=== PATIENT | female | born 1970 | race Caucasian/White ===

== ENCOUNTER 2023-05-27 11:05 | Emergency (ER) | payer OTHER ==
[~2023-05-27] VITALS: Ht 170.2 cm; Wt 68.0 kg
[2023-05-27 11:40] LABS: HEMATOCRIT 38.3 % (36-48); MEAN CORPUSCULAR HEMOGLOBIN 33.9 pg (27.0-33.0); RED BLOOD CELL COUNT(AUTO) 3.95 MIL/uL (4.00-5.50); RED CELL DISTRIBUTION WIDTH 15.2 % (11.0-15.5); WHITE BLOOD COUNT (AUTO) 5.3 K/uL (4.8-10.8)
[2023-05-27 11:55] LABS: ALBUMIN 4.2 g/dL (3.5-5.0); CREATININE 0.8 mg/dL (0.5-1.5); TOTAL PROTEIN, SERUM 8.3 g/dL (6.0-8.3)
[2023-05-27 11:56] LABS: POTASSIUM 2.8 mmol/L (3.5-5.1)
[2023-05-27 11:58] LABS: BILIRUBIN,URINE 0.5 mg/dL (NEGATIVE); COLOR,URINE YELLOW (YELLOW); GLUCOSE, URINE (UA) 30 mg/dL (NEGATIVE); KETONES,URINE 150 mg/dL (NEGATIVE); LEUKOCYTE ESTERASE ,URINE NEGATIVE Leu/uL (NEGATIVE); NITRATE,URINE NEGATIVE (NEGATIVE); OCCULT BLOOD,URINE SMALL (NEGATIVE); PH,URINE 6.5 (5.0-8.0); PROTEIN,URINE 100 mg/dL (NEGATIVE)
[2023-05-27 11:59] LABS: ADD UA MICROSCOPIC YES; APPEARANCE,URINE HAZY (CLEAR)
[2023-05-27] MEDS ORDERED: POTASSIUM CHLORIDE 10MEQ/100ML 10 MEQ/100 ML ML IV ONE ×2 (12:00→14:00)
[2023-05-27] MEDS ORDERED: LACTATED RINGERS 1000ML 1,000 ML IV ONE (12:00)
[2023-05-27] MEDS ORDERED: ONDANSETRON 4MG INJ IVP ONE (12:00)
[2023-05-27] MEDS ORDERED: KETOROLAC 15MG/ML VIAL (15MG/ML) IV ONE (12:00)
[2023-05-27] MEDS ORDERED: FAMOTIDINE 20MG VIAL IV ONE (12:00)
[2023-05-27 12:01] LABS: BACTERIA,URINE FEW /HPF (None Seen); MUCUS,URINE FEW LPF (None Seen); SQUAMOUS EPITHELIAL CELL,UR FEW /HPF (0-2); WBC,URINE 0-1 /HPF (0-1)
[2023-05-27 16:35] VITALS: BP 118/75; PULSE 82; RESP 16; O2SAT 100
[2023-05-27] MEDS ORDERED: ONDA4TAB10 PO (16:59)
[2023-05-27] MEDS ORDERED: POTA-364 PO (16:59)
[2023-05-28] MEDS ORDERED: CETI-193 PO (02:05)
[2023-05-28] MEDS ORDERED: FLUO40CA7 PO (02:05)
== END 2023-05-27 17:14 | disposition home or self-care (01) ==
LOC: EDH 11:05
DX: E87.6 Hypokalemia (principal); R19.7 Diarrhea, unspecified; R11.2 Nausea with vomiting, unspecified; F32.A Depression, unspecified; J45.909 Unspecified asthma, uncomplicated; Z79.899 Other long term (current) drug therapy; Z98.890 Other specified postprocedural states
CPT/HCPCS: 99285; 96365; 96375; 96366; 96361; 80053; 85027; 81001; 36415; 96376; 93005; 84132; J7120; J3490; J2405; J1885; J3480 ×2; 96374

== ENCOUNTER 2023-05-27 19:39 | Inpatient (IN) | payer MEDICAID, OTHER ==
[~2023-05-27] VITALS: Ht 170.2 cm; Wt 70.9 kg
[~2023-05-27 19:39] MED LIST: ONDA4TAB10 PO; POTA-364 PO
[2023-05-27 20:02] LABS: BASOPHILS # (AUTO) 0.03 K/uL (0.00-0.20); BASOPHILS % (AUTO) 0.5 % (0.0-5.0); EOSINOPHILS # (AUTO) 0.01 K/uL (0.00-0.70); EOSINOPHILS % (AUTO) 0.2 % (0.0-8.0); HEMATOCRIT 31.6 % (36-48); IMMATURE GRANULOCYTE ABSOLUTE 0.03 K/uL (0-1); LYMPHOCYTES # (AUTO) 0.4 K/uL (1.0-4.8); LYMPHOCYTES % (AUTO) 7.9 % (21.0-51.0); MEAN CORPUSCULAR HEMOGLOBIN 34.1 pg (27.0-33.0); MEAN CORPUSCULAR HGB CONC 34.8 g/dL (32.0-36.0); MEAN CORPUSCULAR VOLUME 97.8 fL (79-99); MONOCYTES # (AUTO) 0.3 K/uL (0.1-1.0); MONOCYTES % (AUTO) 5.8 % (3.0-13.0); NEUTROPHILS # (AUTO) 4.7 K/uL (1.8-7.7); NEUTROPHILS % (AUTO) 85.1 % (40.0-77.0); PLATELET COUNT (AUTO) 105 K/uL (130-400); RED BLOOD CELL COUNT(AUTO) 3.23 MIL/uL (4.00-5.50); RED CELL DISTRIBUTION WIDTH 15.5 % (11.0-15.5); WHITE BLOOD COUNT (AUTO) 5.6 K/uL (4.8-10.8)
[2023-05-27 20:14] LABS: ALBUMIN 3.4 g/dL (3.5-5.0); BILIRUBIN,TOTAL 1.8 mg/dL (0.2-1.0); CREATININE 0.8 mg/dL (0.5-1.5); MAGNESIUM 0.8 mg/dL (1.80-2.40); TOTAL PROTEIN, SERUM 6.7 g/dL (6.0-8.3)
[2023-05-27 20:17] LABS: POTASSIUM 2.8 mmol/L (3.5-5.1)
[2023-05-27] MEDS ORDERED: 0.9%NACL 1000ML 1,000 ML IV ONE (20:30)
[2023-05-27] MEDS ORDERED: POTASSIUM BICARB/CIT AC 25 MEQ TABLET.EFF PO ONE (20:30)
[2023-05-27 20:53] LABS: ADD UA MICROSCOPIC YES; APPEARANCE,URINE CLOUDY (CLEAR); BILIRUBIN,URINE 1 mg/dL (NEGATIVE); COLOR,URINE ORANGE (YELLOW); GLUCOSE, URINE (UA) 50 mg/dL (NEGATIVE); KETONES,URINE 40 mg/dL (NEGATIVE); LEUKOCYTE ESTERASE ,URINE 25 Leu/uL (NEGATIVE); NITRATE,URINE NEGATIVE (NEGATIVE); PH,URINE 6.5 (5.0-8.0); PROTEIN,URINE 100 mg/dL (NEGATIVE)
[2023-05-27 21:03] LABS: BACTERIA,URINE FEW /HPF (None Seen); MUCUS,URINE FEW LPF (None Seen); SQUAMOUS EPITHELIAL CELL,UR MANY /HPF (0-2)
[2023-05-27] MEDS ORDERED: CEFTRIAXONE 2GM VIAL IVPB ONE (21:30)
[2023-05-27] MEDS: MAGNESIUM 2GM PREMIX 50ML 50 ML IV PRN (22:00)
[2023-05-27] MEDS ORDERED: POTASSIUM CHLORIDE 20MEQ/100ML 100 ML IV PRN (23:30)
[2023-05-27] MEDS ORDERED: ONDANSETRON 4MG INJ IV PRN (23:30)
[2023-05-27] MEDS ORDERED: ACETAMINOPHEN 325 MG TAB PO PRN ×2 (23:30)
[2023-05-28] MEDS: LACTATED RINGERS 1000ML 1,000 ML IV SCH (00:15)
[2023-05-28] MEDS: CEFTRIAXONE 1G VIAL IV SCH (00:15)
[2023-05-28] MEDS: POTASSIUM CHLORIDE 10% ELIXIR 20 MEQ/15 ML UDCUP PO PRN ×4 (00:18→15:01)
[2023-05-28] MEDS ORDERED: CETI-193 PO (02:05)
[2023-05-28] MEDS ORDERED: FLUO40CA7 PO (02:05)
[2023-05-28] MEDS: MAGNESIUM 2GM PREMIX 50ML 50 ML IV PRN (02:16)
[2023-05-28] MEDS: PHENAZOPYRIDINE HCL 200 MG TABLET PO PRN ×2 (03:11→15:01)
[2023-05-28 04:00] VITALS: BP 109/61; PULSE 79; RESP 18
[2023-05-28] MEDS ORDERED: LORAZEPAM 2 MG/ML 1 ML VIAL ONE (05:24)
[2023-05-28] MEDS ORDERED: LORAZEPAM 2 MG/ML 1 ML VIAL IVP ONE (05:30)
[2023-05-28 05:59] LABS: AMPHET/METH SCREEN,URINE NEGATIVE (NEGATIVE); BARBITURATE SCREEN, URINE NEGATIVE (NEGATIVE); BENZODIAZEPINES SCREEN,URINE NEGATIVE (NEGATIVE); CANNABINOID SCREEN,URINE POSITIVE (NEGATIVE); COCAINE SCREEN,URINE NEGATIVE (NEGATIVE); OPIATE SCREEN,URINE NEGATIVE (NEGATIVE); PHENCYCLIDINE SCREEN,URINE NEGATIVE (NEGATIVE)
[2023-05-28 07:04] LABS: HEMATOCRIT 28.9 % (36-48); MEAN CORPUSCULAR HEMOGLOBIN 34.6 pg (27.0-33.0); MEAN CORPUSCULAR HGB CONC 34.9 g/dL (32.0-36.0); RED BLOOD CELL COUNT(AUTO) 2.92 MIL/uL (4.00-5.50); RED CELL DISTRIBUTION WIDTH 15.7 % (11.0-15.5)
[2023-05-28 07:32] LABS: % IRON SATURATION 29.3 % (22-44)
[2023-05-28 07:47] LABS: BILIRUBIN,TOTAL 0.8 mg/dL (0.2-1.0); CREATININE 0.8 mg/dL (0.5-1.5); MAGNESIUM 1.9 mg/dL (1.80-2.40); TOTAL PROTEIN, SERUM 6.1 g/dL (6.0-8.3)
[2023-05-28 08:00] VITALS: BP 107/68; PULSE 86; RESP 17
[2023-05-28] MEDS: KCL 20 MEQ ERTAB PO PRN ×2 (08:11→10:30)
[2023-05-28 08:16] LABS: HEMOGLOBIN A1C 5.8 % (4.0-6.0)
[2023-05-28] MEDS ORDERED: LEVETIRACETAM 500 MG/5 ML SD VIAL IV SCH (09:00)
[2023-05-28] MEDS ORDERED: LEVETIRACETAM 500 MG in 0.9%NACL 100ML 100 ML IV SCH (09:30)
[2023-05-28] MEDS: FAMOTIDINE 20MG TAB PO SCH ×2 (10:29→20:21)
[2023-05-28 12:00] VITALS: BP 116/73; PULSE 82; RESP 18
[2023-05-28] MEDS ORDERED: PROMETHAZINE HCL 25 MG TABLET PO PRN (14:30)
[2023-05-28] MEDS ORDERED: PHARMACY COMMUNICATION MISC PRN (14:30)
[2023-05-28] MEDS ORDERED: LORAZEPAM 2 MG/ML 1 ML VIAL IVP PRN (14:30)
[2023-05-28] MEDS ORDERED: ONDANSETRON 4MG INJ IV PRN (14:30)
[2023-05-28] MEDS: THIAMINE HCL 100 MG, FOLIC ACID 1 MG, M.V.I. IV [ADULT] 10 ML in 0.9%NACL 1000ML 1,000 ML IV SCH (15:45)
[2023-05-28 16:00] VITALS: BP 109/54; PULSE 99; RESP 18
[2023-05-28] MEDS: CHLORDIAZEPOXIDE HCL 25 MG CAP PO PRN ×2 (17:45→22:02)
[2023-05-28 20:00] VITALS: BP 101/41; PULSE 94; RESP 20
[2023-05-28 20:22] VITALS: O2SAT 96
[2023-05-29] VITALS (8 sets, daily range): BP systolic 103–121; BP diastolic 67–74; PULSE 74–97; RESP 18; O2SAT 97–99
[2023-05-29] MEDS: CEFTRIAXONE 1G VIAL IV SCH ×2 (00:13→22:51)
[2023-05-29] MEDS: CHLORDIAZEPOXIDE HCL 25 MG CAP PO PRN (00:53)
[2023-05-29] MEDS: LACTATED RINGERS 1000ML 1,000 ML IV SCH ×3 (05:30→15:30)
[2023-05-29 05:58] LABS: BASOPHILS # (AUTO) 0.01 K/uL (0.00-0.20); BASOPHILS % (AUTO) 0.2 % (0.0-5.0); EOSINOPHILS # (AUTO) 0.08 K/uL (0.00-0.70); EOSINOPHILS % (AUTO) 1.6 % (0.0-8.0); IMMATURE GRANULOCYTE ABSOLUTE 0.03 K/uL (0-1); LYMPHOCYTES # (AUTO) 0.8 K/uL (1.0-4.8); LYMPHOCYTES % (AUTO) 16.7 % (21.0-51.0); MEAN CORPUSCULAR HEMOGLOBIN 34.8 pg (27.0-33.0); MEAN CORPUSCULAR HGB CONC 34.1 g/dL (32.0-36.0); MEAN CORPUSCULAR VOLUME 102.3 fL (79-99); MONOCYTES # (AUTO) 0.3 K/uL (0.1-1.0); NEUTROPHILS # (AUTO) 3.6 K/uL (1.8-7.7); NEUTROPHILS % (AUTO) 73.9 % (40.0-77.0); PLATELET COUNT (AUTO) 69 K/uL (130-400); RED BLOOD CELL COUNT(AUTO) 2.64 MIL/uL (4.00-5.50); RED CELL DISTRIBUTION WIDTH 16.1 % (11.0-15.5); WHITE BLOOD COUNT (AUTO) 4.9 K/uL (4.8-10.8)
[2023-05-29 06:32] LABS: CREATININE 0.6 mg/dL (0.5-1.5); MAGNESIUM 1.7 mg/dL (1.80-2.40); PHOSPHORUS 1.7 mg/dL (2.5-4.9); POTASSIUM 3.1 mmol/L (3.5-5.1)
[2023-05-29] MEDS: FLUOXETINE HCL 10 MG CAPSULE PO SCH (09:31)
[2023-05-29] MEDS: FAMOTIDINE 20MG TAB PO SCH ×2 (09:31→21:03)
[2023-05-29] MEDS: KCL 20 MEQ ERTAB PO PRN ×2 (10:13→10:14)
[2023-05-29] MEDS: POTASSIUM CHLORIDE 10% ELIXIR 20 MEQ/15 ML UDCUP PO PRN ×3 (10:19→18:08)
[2023-05-29] MEDS ORDERED: MAGNESIUM 2GM PREMIX 50ML 50 ML IV SCH (10:30)
[2023-05-29] MEDS ORDERED: COMPOUND IV REFRIGERATED 1 EACH IVSOLN MISC PRN (12:30)
[2023-05-29] MEDS ORDERED: COMPOUND IV MISC 1 EACH IVSOLN MISC PRN (12:30)
[2023-05-29] MEDS: THIAMINE HCL 100 MG, FOLIC ACID 1 MG, M.V.I. IV [ADULT] 10 ML in 0.9%NACL 1000ML 1,000 ML IV SCH (14:30)
[2023-05-29 19:10] LABS: C DIFFICILE TOXIN A/B Not Detected (Not Detected); ENTEROAGGREGATIVE ECOLI Not Detected (Not Detected); GIARDIA LAMBLIA Not Detected (Not Detected); PLESIOMONAS SHIGELOIDES Not Detected (Not Detected); SAPOVIRUS Not Detected (Not Detected); SHIGELLA/ENTEROINVASIVE E COLI Not Detected (Not Detected); VIBRIO Not Detected (Not Detected); VIBRIO CHOLERAE Not Detected (Not Detected)
[2023-05-30] VITALS: BP 118/69; PULSE 75; RESP 18
[2023-05-30] MEDS: LACTATED RINGERS 1000ML 1,000 ML IV SCH (01:30)
[2023-05-30 04:00] VITALS: BP 112/56; PULSE 72; RESP 18
[2023-05-30 05:43] LABS: BASOPHILS # (AUTO) 0.02 K/uL (0.00-0.20); BASOPHILS % (AUTO) 0.4 % (0.0-5.0); EOSINOPHILS # (AUTO) 0.18 K/uL (0.00-0.70); EOSINOPHILS % (AUTO) 3.9 % (0.0-8.0); HEMATOCRIT 26.4 % (36-48); IMMATURE GRANULOCYTE ABSOLUTE 0.05 K/uL (0-1); LYMPHOCYTES # (AUTO) 0.8 K/uL (1.0-4.8); LYMPHOCYTES % (AUTO) 18.2 % (21.0-51.0); MEAN CORPUSCULAR HEMOGLOBIN 34.2 pg (27.0-33.0); MEAN CORPUSCULAR HGB CONC 33.7 g/dL (32.0-36.0); MEAN CORPUSCULAR VOLUME 101.5 fL (79-99); MONOCYTES # (AUTO) 0.5 K/uL (0.1-1.0); MONOCYTES % (AUTO) 11.5 % (3.0-13.0); NEUTROPHILS % (AUTO) 64.9 % (40.0-77.0); PLATELET COUNT (AUTO) 77 K/uL (130-400); RED CELL DISTRIBUTION WIDTH 16.2 % (11.0-15.5); WHITE BLOOD COUNT (AUTO) 4.6 K/uL (4.8-10.8)
[2023-05-30 06:04] LABS: ALBUMIN 2.5 g/dL (3.5-5.0); BILIRUBIN,TOTAL 0.3 mg/dL (0.2-1.0); CREATININE 0.6 mg/dL (0.5-1.5); POTASSIUM 3.9 mmol/L (3.5-5.1); TOTAL PROTEIN, SERUM 5.9 g/dL (6.0-8.3)
[2023-05-30 08:00] VITALS: BP 120/76; PULSE 68; RESP 18; O2SAT 99
[2023-05-30] MEDS: FLUOXETINE HCL 10 MG CAPSULE PO SCH (08:32)
[2023-05-30] MEDS: FAMOTIDINE 20MG TAB PO SCH (08:32)
[2023-05-30] MEDS ORDERED: CEPH500B PO (09:15)
== END 2023-05-30 11:20 | disposition home or self-care (01) | DRG 53 ==
LOC: EDH 19:39 → EDHIP 23:02 → 3BH 05-28 01:34
PROVIDERS: ADMIT Hospitalist; ATTEND Hospitalist
PROC: 4A00X4Z Measurement of Central Nervous Electrical Activity, External Approach (ICD-10-PCS; principal; 2023-05-28)
DX: G40.509 Epileptic seizures related to external causes, not intractable, without status epilepticus (principal); I21.A1 Myocardial infarction type 2; D69.6 Thrombocytopenia, unspecified; F05 Delirium due to known physiological condition; E86.0 Dehydration; K52.9 Noninfective gastroenteritis and colitis, unspecified; M62.82 Rhabdomyolysis; N39.0 Urinary tract infection, site not specified; D64.9 Anemia, unspecified; R74.01 Elevation of levels of liver transaminase levels; E03.9 Hypothyroidism, unspecified; R73.9 Hyperglycemia, unspecified; E87.6 Hypokalemia; F32.A Depression, unspecified; F19.10 Other psychoactive substance abuse, uncomplicated; E78.5 Hyperlipidemia, unspecified; E83.42 Hypomagnesemia; J45.909 Unspecified asthma, uncomplicated; F41.9 Anxiety disorder, unspecified; F12.90 Cannabis use, unspecified, uncomplicated; Z79.899 Other long term (current) drug therapy
CPT/HCPCS: 36415; 70450; 80048; 80053; 80305; 81001; 81025; 82270; 82550; 82607; 82746; 83036; 83540; 83550; 83605; 83630; 83735; 83874; 84100; 84443; 84484; 85025; 85027; 87046; 87177; 87324; 87507; 93005; 95819; G0378; J0696; J1953; J2060; J3411; J3475; J3490; J7030; J7120